=== PATIENT | female | born 1985 | race Caucasian/White ===

== ENCOUNTER 2020-02-13 09:27 | Emergency (ER) | payer OTHER ==
[~2020-02-13] VITALS: Ht 162.6 cm; Wt 53.1 kg
--- NOTE | 2020-02-13 09:55 | Emergency Room Report ---
History of Present Illness General Chief Complaint: Abdominal Pain Source: Patient Present Illness HPI Patient is a 34-year-old female presents after increased right-sided flank pain. Reports having onset of symptoms after intercourse. States she recently finished her menses and denies being . Had previous been diagnosed with ovarian cyst. Denies any fever. States she had some nausea yesterday. Denies any migration of pain. Pain is worse with supine position. Denies any diarrhea or other areas of abdominal discomfort at this time. Onset last night. 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: No Patient History Past Medical History: see triage record Past Surgical History: none Last Menstrual Period: 02/07/2020 Now: No Reviewed Nursing Documentation: PMH: Agreed; PSxH: Agreed Nursing Documentation-PMH Past Medical History: No Stated History Review of Systems All Other Systems: negative except mentioned in HPI Physical Exam Vital Signs Date Time Temp Pulse Resp B/P (MAP) Pulse Ox O2 Delivery O2 Flow Rate FiO2 02/13/20 09:34 97.9 74 18 105/78 (87) 99 Room Air Sp02 EP Interpretation: reviewed, normal General Appearance: normal inspection, well appearing, no apparent distress, alert, GCS 15, non-toxic Head: atraumatic ENT: normal ENT inspection, hearing grossly normal, normal voice Neck: normal inspection, full range of motion, supple, no bony tend Respiratory: normal inspection, lungs clear, normal breath sounds, no respiratory distress, no retraction, no wheezing Cardiovascular #1: regular rate, rhythm, no edema Gastrointestinal: normal inspection, normal bowel sounds, soft, no guarding, no hernia, other - Right-sided tenderness, no suprapubic tenderness Genitourinary: no CVA tenderness Musculoskeletal: normal inspection, back normal, normal range of motion Neurologic: alert, responsive, speech normal, normal inspection Psychiatric: normal inspection, judgement/insight normal, mood/affect normal Medical Decision Making Diagnostic Impression: Primary Impression: Liver lesion Additional Impression: Urinary tract infection ER Course Patient presented for right-sided flank pain. Differential diagnosis include was not limited to ovarian cyst rupture, kidney stone, appendicitis, urinary tract infection among others. Patient has a benign exam and does not appear to require laboratory testing at this time. Patient declined laboratory testing. She was agreeable with ultrasound exam. Patient was given Toradol for pain. Urine test was sent. Patient states she recently finished her menses and had onset during intercourse which suggest that this may be ruptured ovarian cyst. Pelvic ultrasound showed no evidence of free fluid. Abdominal ultrasound showed no evidence of appendicitis with some lesion to the right upper quadrant. CT imaging was ordered to evaluate for possible stone. CT imaging read by radiology showed hemangioma to the liver. There is some air in the bladder concerning for gas-forming organism. Patient was given prescription for oral antibiotics as well as given IV Rocephin in the emergency department. Patient was noted to have improvement in symptoms over time. Patient was advised to return if she had any worsening condition advised to have urine rechecked in the next few days with her doctor. She is to return if worse. This medical record is generated with [employer] manager poker software. There may be some manager poker discrepancies related to use of this software Labs Test 02/13/20 09:45 02/13/20 11:40 Urine Color Yellow Urine Appearance Clear Urine pH 8 (4.5-8.0) Urine Specific [place] 1.010 (1.005-1.035) Urine Protein Negative (NEGATIVE) Urine Glucose (UA) Negative (NEGATIVE) Urine Ketones Negative (NEGATIVE) Urine Blood 4+ (NEGATIVE) Urine Nitrite Negative (NEGATIVE) Urine Bilirubin Negative (NEGATIVE) Urine Urobilinogen Normal MG/DL (0.0-1.0) Urine Leukocyte Esterase 1+ (NEGATIVE) Urine RBC 10-15 /HPF (0 - 2) Urine WBC 5-10 /HPF (0 - 2) Urine Squamous Epithelial Cells Many /LPF (NONE/OCC) Urine Bacteria Few /HPF (NONE) Urine HCG, Qualitative Negative (NEGATIVE) White Blood Count 7.5 K/UL (4.8-10.8) Red Blood Count 4.86 M/UL (4.20-5.40) Hemoglobin 14.9 G/DL (12.0-16.0) Hematocrit 45.1 % (37.0-47.0) Mean Corpuscular Volume 93 FL (80-99) Mean Corpuscular Hemoglobin 30.6 PG (27.0-31.0) Mean Corpuscular Hemoglobin Concent 33.0 G/DL (32.0-36.0) Red Cell Distribution Width 12.4 % (11.6-14.8) Platelet Count 258 K/UL (150-450) Mean Platelet Volume 7.9 FL (6.5-10.1) Neutrophils (%) (Auto) 78.5 % (45.0-75.0) Lymphocytes (%) (Auto) 15.3 % (20.0-45.0) Monocytes (%) (Auto) 4.9 % (1.0-10.0) Eosinophils (%) (Auto) 0.5 % (0.0-3.0) Basophils (%) (Auto) 0.7 % (0.0-2.0) Prothrombin Time 11.1 SEC (9.30-11.50) Prothromb Time International Ratio 1.0 (0.9-1.1) Activated Partial Thromboplast Time 23 SEC (23-33) Sodium Level 140 MMOL/L (136-145) Potassium Level 3.9 MMOL/L (3.5-5.1) Chloride Level 106 MMOL/L (98-107) Carbon Dioxide Level 26 MMOL/L (21-32) Anion Gap 8 mmol/L (5-15) Blood Urea Nitrogen 12 mg/dL (7-18) Creatinine 0.8 MG/DL (0.55-1.30) Estimat Glomerular Filtration Rate > 60 mL/min (>60) Glucose Level 95 MG/DL (74-106) Calcium Level 8.7 MG/DL (8.5-10.1) Total Bilirubin 0.5 MG/DL (0.2-1.0) Aspartate Amino Transf (AST/SGOT) 18 U/L (15-37) Alanine Aminotransferase (ALT/SGPT) 11 U/L (12-78) Alkaline Phosphatase 36 U/L (46-116) Total Protein 8.0 G/DL (6.4-8.2) Albumin 4.4 G/DL (3.4-5.0) Globulin 3.6 g/dL Albumin/Globulin Ratio 1.2 (1.0-2.7) Lipase 229 U/L (73-393) Last Vital Signs Date Time Temp Pulse Resp B/P (MAP) Pulse Ox O2 Delivery O2 Flow Rate FiO2 02/13/20 09:34 97.9 74 18 105/78 (87) 99 Room Air Status: improved Disposition: HOME, SELF-CARE Condition: Stable Scripts Cephalexin* (KEFLEX*) 500 Mg Capsule 500 MG ORAL EVERY 6 HOURS, #28 CAP Prov: Shin Lozano MD 02/13/20 Metronidazole* (FLAGYL*) 500 Mg Tablet 500 MG ORAL THREE TIMES A DAY, #21 TAB 0 Refills Prov: Shin Lozano MD 02/13/20 Shin Lozano MD Feb 13, 2020 09:55
[2020-02-13 09:59] VITALS: BP 105/78
[2020-02-13] MEDS ORDERED: Ketorolac 60mg Inj IM ONE (10:00)
[2020-02-13 10:14] LABS: APPEARANCE,URINE CLEAR; BILIRUBIN, URINE NEGATIVE (NEGATIVE); GLUCOSE, URINE (UA) NEGATIVE (NEGATIVE); KETONES,URINE NEGATIVE (NEGATIVE); LEUKOCYTE ESTERASE ,URINE 1+ (NEGATIVE); NITRITE,URINE NEGATIVE (NEGATIVE); PH,URINE 8 (4.5-8.0); PROTEIN,URINE NEGATIVE (NEGATIVE); UROBILINOGEN,URINE NORMAL MG/DL (0.0-1.0)
[2020-02-13 10:17] LABS: COLOR,URINE YELLOW
[2020-02-13] MEDS ORDERED: cefTRIAXone 1 GM in NS 55 ML IVPB ONE (11:15)
[2020-02-13] MEDS ORDERED: Omnipaque-300 100ml vial INJ PRN (11:15)
[2020-02-13 11:55] LABS: BASOPHILS % (AUTO) 0.7 % (0.0-2.0); EOSINOPHILS % (AUTO) 0.5 % (0.0-3.0); HEMATOCRIT 45.1 % (37.0-47.0); HEMOGLOBIN 14.9 G/DL (12.0-16.0); LYMPHOCYTES % (AUTO) 15.3 % (20.0-45.0); MEAN CORPUSCULAR VOLUME 93 FL (80-99); MONOCYTES % (AUTO) 4.9 % (1.0-10.0); NEUTROPHILS % (AUTO) 78.5 % (45.0-75.0); PLATELET COUNT 258 K/UL (150-450); RED BLOOD COUNT 4.86 M/UL (4.20-5.40); RED CELL DISTRIBUTION WIDTH 12.4 % (11.6-14.8); WHITE BLOOD COUNT 7.5 K/UL (4.8-10.8)
--- NOTE | 2020-02-13 12:11 | Diagnostic Imaging Report ---
Indication: Pelvic pain, negative test Technique: Transabdominal and transvaginal images of the pelvis. Doppler interrogation of the ovaries Comparison: none Findings: Uterus measures 7.1 cm length by 4.2 cm AP. Endometrium measures 3 mm in thickness. There are questionable small fundal fibroids measuring up to 2.6 cm diameter. Right ovary measures 2.6 cm length. The left ovary measures 2.8 cm length. Both ovaries demonstrate normal flow on Doppler. No free cul-de-sac fluid demonstrated Impression: Small uterine fibroids Negative for adnexal mass or other acute abnormality
[2020-02-13 12:15] LABS: ANION GAP 8 mmol/L (5-15); BLOOD UREA NITROGEN 12 mg/dL (7-18); CALCIUM 8.7 MG/DL (8.5-10.1); CARBON DIOXIDE 26 MMOL/L (21-32); CHLORIDE 106 MMOL/L (98-107); CREATININE 0.8 MG/DL (0.55-1.30); POTASSIUM 3.9 MMOL/L (3.5-5.1); SODIUM 140 MMOL/L (136-145)
[2020-02-13 12:19] LABS: ALANINE AMINOTRANSFERASE 11 U/L (12-78); ALBUMIN 4.4 G/DL (3.4-5.0); ALBUMIN/GLOBULIN RATIO 1.2 (1.0-2.7); ALKALINE PHOSPHATASE 36 U/L (46-116); ASPARTATE AMINO TRANSFERASE 18 U/L (15-37); BILIRUBIN,TOTAL 0.5 MG/DL (0.2-1.0)
--- NOTE | 2020-02-13 12:23 | Diagnostic Imaging Report ---
Indication: Abdominal pain Technique: Parker-scale and duplex images of the upper abdomen were obtained. Doppler interrogation of the pancreatic and hepatic vessels. Graded compression images of the right lower quadrant Comparison: Findings: Gallbladder is unremarkable, without stones, wall thickening, nor pericholecystic fluid. Sonographic Chowdhury's sign is negative. Common bile duct measures 3 mm in diameter. No intrahepatic biliary ductal dilatation. Liver demonstrates normal echogenicity. There is a 1.7 x 1.2 cm hyperechoic mass in the right hepatic lobe without definite distal acoustic enhancement. Portal vein and hepatic veins are patent. Pancreas is unremarkable. Spleen is unremarkable. Left kidney measures 10.7 cm in length. Right kidney measures 10.1 cm length. Both kidneys demonstrate normal echogenicity. There is no hydronephrosis. No focal abnormality . Non-aneurysmal abdominal aorta . Scanning of the right lower quadrant demonstrates a 2.9 x 0.6 cm node that demonstrates normal judie architecture. The appendix could not be visualized. Impression: 1.7 x 1.2 cm hyperechoic mass in the right hepatic lobe. Possibly but not definitively a benign hemangioma. Recommend MRI or CT with hemangioma protocol Negative for gallstones or dilated bile ducts Nonvisualized appendix, therefore nondiagnostic for the presence or absence of acute appendicitis. Prominent lymph node with normal architecture in the right lower quadrant is nonspecific Findings discussed by phone with Dr. Lozano in the emergency room at the time of interpretation
--- NOTE | 2020-02-13 13:45 | Diagnostic Imaging Report ---
Clinical Indication: Right-sided flank pain Technique: No oral contrast utilized, per emergency room physician request IV administration nonionic contrast. Venous phase spiral acquisition obtained through the abdomen and pelvis. Multiplanar reconstructions were generated. Total dose length product 217 mGycm. CTDIvol(s) 4.8 mGy. Dose reduction achieved using automated exposure control Comparison: No comparison CT scans. Reference made to sonograms performed earlier the same day Findings: The kidneys are unremarkable. No definite renal calculi, hydronephrosis, or hydroureter demonstrated. No focal abnormality. There is a gas bubble within the bladder. No bladder wall thickening demonstrated. The liver demonstrates a lesion in segment V of the tip of the right hepatic lobe that measures 12 mm in diameter. This demonstrates mixed decreased attenuation and peripheral nodular enhancement. This corresponds to the findings reported on recent sonogram. No other focal hepatic abnormality. The gallbladder, bile ducts, pancreas, spleen, adrenals, kidneys are unremarkable. No retroperitoneal or mesenteric mass or adenopathy. No pelvic mass or adenopathy. The appendix is normal. No evidence of diverticulosis or diverticulitis. No small bowel distention. No free or loculated intraperitoneal gas or fluid. Distal esophagus, stomach, duodenum are unremarkable. The included lung bases are clear. The bones are unremarkable. Impression: Gas bubble within the bladder lumen. Most likely due to recent instrumentation. However, if no history of such then the possibility of infection with a gas-forming organism should be considered. 12 mm low-attenuation lesion in the right hepatic lobe, demonstrating what appears to be peripheral nodular enhancement. Given this finding and appearance on recent sonogram, lesion most likely although not definitively represents a benign hemangioma. Consider further workup with hemangioma protocol MRI versus short interval 3-6 month follow-up sonogram. Limited assessment of the GI tract, due to lack of enteric contrast administration. No definite acute GI abnormality demonstrated. Findings discussed by phone with Dr. Lozano in the emergency room at the time of interpretation The CT scanner at [facility] is accredited by the [employer] and the scans are performed using protocols designed to limit radiation exposure to as low as reasonably achievable to attain images of sufficient resolution adequate for diagnostic evaluation.
[2020-02-13] MEDS ORDERED: METRONIDAZOLE500 MG ORAL (14:40)
[2020-02-13] MEDS ORDERED: CEPHALEXIN500 MG ORAL (14:40)
[2020-02-13 15:02] VITALS: BP 110/71
== END 2020-02-13 15:02 | disposition home or self-care (01) ==
LOC: EMR 09:59
DX: K76.9 Liver disease, unspecified (principal); N39.0 Urinary tract infection, site not specified; Z88.6 Allergy status to analgesic agent
CPT/HCPCS: 36415; 74177; 76700; 76830; 76857; 80053; 81003; 81025; 83690; 85025; 85610; 85730; 96365; 96372; 99284; J0696; Q9965